=== PATIENT | female | born 1980 | race American Indian/Alaskan Native ===

== ENCOUNTER 2019-06-13 15:14 | Emergency (ER) | payer OTHER ==
[2019-06-13 16:14] VITALS: BP 139/92
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
== END 2019-06-13 18:00 | disposition left against medical advice (07) ==
LOC: ED 15:14
DX: M54.2 Cervicalgia (principal); V49.59XA Passenger injured in collision with other motor vehicles in traffic accident, initial encounter; Y92.410 Unspecified street and highway as the place of occurrence of the external cause; Y93.89 Activity, other specified; Y99.8 Other external cause status
CPT/HCPCS: 99282